=== PATIENT | male | born 1940 | race Caucasian/White ===

== ENCOUNTER 2018-10-12 10:42 | Outpatient (CLI) | payer OTHER ==
[~2018-10-12 10:42] MED LIST: ASA81 MG; CARDURA1 MG; CARVEDILOL12.5 MG; DIOVAN HCT 320/1 TA2; DOLOGESIC CAPSU1 CAP PO; DOXYCYCLINE150 MG PO; LIPITOR40 MG; NORVASC10 MG; NORVASC5 MG PO; PROTONIX40 MG PO; RESTORIL15 MG; TOPROL XL50 MG PO
== END 2018-10-12 10:52 | disposition home or self-care (01) ==
LOC: RAD 10:42
DX: R05 Cough (principal)

== ENCOUNTER 2021-02-14 14:21 | Outpatient (CLI) | payer OTHER | END 2021-02-14 14:35 | disposition home or self-care (01) | LOC: SONOGRAMA 14:21 → MAMO-SONO 15:15 | PROVIDERS: ATTEND Urology | DX: Q61.8 Other cystic kidney diseases (principal); R31.1 Benign essential microscopic hematuria ==

== ENCOUNTER 2024-05-31 20:00 | Emergency (ER) | payer OTHER ==
[~2024-05-31] VITALS: Ht 165.1 cm; Wt 101.6 kg
[2024-05-31] MEDS ORDERED: VALSARTAN40 MG (20:27)
[2024-05-31] MEDS ORDERED: TOPROL XL50 M1 (20:28)
[2024-05-31] MEDS ORDERED: HYDROCHLOROTH12.5 MG (20:28)
[2024-05-31] MEDS ORDERED: AMLODIPINE-OLM1 EAC3 (20:28)
[2024-05-31] MEDS ORDERED: CRESTOR40 MG PO (20:28)
[2024-05-31] MEDS ORDERED: CLONAZEPAM0.5 MG PO (20:29)
[2024-05-31 21:20] LABS: HEMATOCRIT 35.1 % (39.0-48.0); HEMOGLOBIN 11.6 g/dL (13-16.00); MEAN CELL VOLUME 71.4 fL (80.0-100.00); MEAN CORPUSCULAR HEMOGLOBIN 23.6 pg (27.00-32.0); MEAN CORPUSCULAR HGB CONC 33.1 g/dl (32.0-36.0); PLATELET COUNT 306 K/uL (150-450); RED BLOOD COUNT 4.91 M/uL (4.00-6.00)
[2024-05-31 21:22] LABS: ALBUMIN 3.6 gm/dL (3.4-5.0); BILIRUBIN TOTAL 0.47 mg/dL (0.3-1.2); CREATININE SERUM 1.18 mg/dL (0.70-1.30); GFR 59.1; GLOBULINA 3.7 G/DL (2.4-3.5); POTASSIUM 3.83 mEq/L (3.5-5.1); TOTAL PROTEIN 7.3 gm/dL (6.4-8.2)
[2024-05-31 21:28] LABS: RED CELL DISTRIBUTION WIDTH 20.6 % (11.5-14.5)
== END 2024-05-31 23:49 | disposition home or self-care (01) ==
LOC: ER 20:01
PROVIDERS: General Practice
DX: R55 Syncope and collapse (principal); I10 Essential (primary) hypertension; W18.39XA Other fall on same level, initial encounter; Y93.89 Activity, other specified; Y92.017 Garden or yard in single-family (private) house as the place of occurrence of the external cause

== ENCOUNTER 2025-05-23 09:44 | Outpatient (CLI) | payer OTHER ==
[~2025-05-23 09:44] MED LIST changes: +AMLODIPINE-OLM1 EAC3; +CLONAZEPAM0.5 MG PO; +CRESTOR40 MG PO; +HYDROCHLOROTH12.5 MG; +TOPROL XL50 M1; +VALSARTAN40 MG
== END 2025-05-23 09:49 | disposition home or self-care (01) ==
LOC: TOM 09:44
PROVIDERS: ATTEND Internal Medicine Gastroenterology
DX: R19.4 Change in bowel habit (principal)